=== PATIENT | female | born 1995 | race Caucasian/White ===

== ENCOUNTER 2017-10-02 23:04 | Emergency (ER) | payer OTHER, BC ==
[2017-10-02 23:14] VITALS: RESP 18; TEMP 97.4; O2SAT 100
[2017-10-02 23:52] VITALS: BP 120/94; PULSE 106
== END 2017-10-02 23:49 | disposition home or self-care (01) | DRG 563 ==
LOC: ED 23:04
DX: S39.012A Strain of muscle, fascia and tendon of lower back, initial encounter (principal); X50.0XXA Overexertion from strenuous movement or load, initial encounter; Y93.F2 Activity, caregiving, lifting; Y92.129 Unspecified place in nursing home as the place of occurrence of the external cause
CPT/HCPCS: 99282